=== PATIENT | male | born 1960 | race Caucasian/White ===

== ENCOUNTER → 2024-11-20 | Outpatient (CLI) | payer BC, SELFPAY ==
[2024-11-20 08:54] LABS: Alanine Aminotransferase 36 U/L (10-49); Alkaline Phosphatase 73 U/L (46-116); Anion Gap 8 (7-16); Aspartate Amino Transferase 12 U/L (0-34); BUN/Creatinine Ratio 13 Ratio (12-20); Bilirubin,Direct 0.4 mg/dL (0.0-0.3); Blood Urea Nitrogen 14 mg/dL (9-23); Calcium 9.9 mg/dL (8.3-10.6); Cardiac Risk Estimate 3.6 RATIO (4.0-6.7); Chloride 103 mMol/L (98-107); Cholesterol 135 mg/dL (132-200); Creatinine (Component) 1.1 mg/dL (0.6-1.3); Glucose 100 mg/dL (74-106); HDL Cholesterol 37 mg/dL (40-60); LDL Cholesterol,Calculated 73 mg/dL (0-130); Osmolality,Calculated 279 (275-295); Phosphorous 3.1 mg/dL (2.4-5.1); Potassium 4.5 mMol/L (3.4-5.1); Sodium 140 mMol/L (136-145); Total Protein 7.4 gm/dL (5.7-8.2); Triglycerides 126 mg/dL (30-150); Uric Acid 6.3 mg/dL (3.7-9.2); eGFR > 60 See Note
[2024-11-26 06:53] LABS: Direct LDL* 82 mg/dL (<100)
== END | disposition home or self-care (01) ==
LOC: COPL 07:23
PROVIDERS: PCP Family Medicine; Referring Provider Internal Medicine Cardiovascular Disease; Visit Provider Internal Medicine Cardiovascular Disease
DX: I25.118 Atherosclerotic heart disease of native coronary artery with other forms of angina pectoris (principal); I10 Essential (primary) hypertension; R07.89 Other chest pain; E78.2 Mixed hyperlipidemia
CPT/HCPCS: 36415; 80048; 80061; 80076; 83721; 84100; 84550

== ENCOUNTER → 2025-03-28 | Outpatient (CLI) | payer BC, SELFPAY ==
[2025-03-28 08:46] LABS: Glucose Estimated Average 97 mg/dL (80-131)
[2025-03-28 08:47] LABS: Basophils % (Auto) 1 % (0-2.5); Eosinophils # (Auto) 0.1 Thou/mm3 (0.0-0.5); Eosinophils % (Auto) 2 % (0-10); Hematocrit 45.1 % (41.0-53.0); Immature Granulocytes % (Auto) 1 % (0-0); Immature Granulocytes Auto 0.03 Thou/mm3 (0.00-0.00); Lymphocytes # (Auto) 1.7 Thou/mm3 (1.0-4.8); Lymphocytes % (Auto) 25 % (10-50); Mean Corpuscular HGB Conc 35.5 g/dl (31.0-37.0); Mean Corpuscular Hemoglobin 32.9 pg (25.0-35.0); Mean Corpuscular Volume 93 fL (80-100); Monocytes # (Auto) 0.6 Thou/mm3 (0.0-0.8); Monocytes % (Auto) 8 % (0-12); Neutrophils # (Auto) 4.2 Thou/mm3 (1.8-7.7); Neutrophils % (Auto) 64 % (37-80); Nucleated Red Blood Cell % 0 /100 WBC (0); Platelet Count 161 Thou/mm3 (140-440); Red Blood Count 4.87 Miln/mm3 (4.50-5.90); White Blood Count 6.6 Thou/mm3 (3.8-10.6)
[2025-03-28 09:12] LABS: C-Reactive Protein < 0.5 mg/dL (0.0-0.9); Thyroid Stimulating Hormone 2.19 uIU/mL (0.55-4.78)
[2025-03-28 09:13] LABS: Sed Rate (ESR) 2 mm/hr (0-20)
[2025-03-28 09:19] LABS: Collection Type, Urine Clean Catch; Squamous Epithelial Cell,Urine 0 /hpf (0-5); WBC,Urine 0 /hpf (0-5)
[2025-03-28 09:57] LABS: Bilirubin,Urine Negative (Negative); Blood,Urine Negative (Negative); Clarity,Urine Clear (Clear/Hazy); Color,Urine Lt-Yellow (Lt Yel-Yel); Culture Indicated,Urine Not Indicated; Glucose, Urine Negative (Negative); Ketones,Urine Negative (Negative); Leukocyte Esterase,Urine Negative (Negative); Nitrite,Urine Negative (Negative); PH,Urine 5.5 (5.0-7.0); Protein,Urine Negative (Neg - Trace); RBC,Urine 2 /hpf (0-3); Specific Gravity,Urine 1.021 (1.001-1.035); Urobilinogen,Urine Negative mg/dL (0.0-1.0)
[2025-04-15 17:52] LABS: PSA, Total 0.5 ng/mL (< OR = 4.0)
[2025-04-16 06:32] LABS: Sex Hormone Binding Globulin* 32 nmol/L (22-77); Testosterone, Total, Dialysis 436 ng/dL (250-1100)
== END | disposition home or self-care (01) ==
LOC: COPL 07:43
PROVIDERS: PCP Family Medicine; Referring Provider Physician Assistant; Visit Provider Physician Assistant
DX: R53.81 Other malaise (principal)
CPT/HCPCS: 36415; 81001; 83036; 84153; 84154; 84270; 84402; 84403; 84443; 85025; 85652; 86140

== ENCOUNTER → 2025-05-27 | Outpatient (CLI) | payer BC, SELFPAY ==
[2025-05-27 09:11] LABS: Basophils # (Auto) 0.0 Thou/mm3 (0.0-0.2); Basophils % (Auto) 1 % (0-2.5); Eosinophils # (Auto) 0.1 Thou/mm3 (0.0-0.5); Eosinophils % (Auto) 2 % (0-10); Hematocrit 44.7 % (41.0-53.0); Hemoglobin 16.0 g/dL (13.5-16.0); Immature Granulocytes Auto 0.02 Thou/mm3 (0.00-0.00); Lymphocytes # (Auto) 2.0 Thou/mm3 (1.0-4.8); Lymphocytes % (Auto) 30 % (10-50); Mean Corpuscular HGB Conc 35.8 g/dl (31.0-37.0); Mean Corpuscular Hemoglobin 32.6 pg (25.0-35.0); Mean Corpuscular Volume 91 fL (80-100); Monocytes # (Auto) 0.6 Thou/mm3 (0.0-0.8); Monocytes % (Auto) 9 % (0-12); Neutrophils # (Auto) 3.9 Thou/mm3 (1.8-7.7); Neutrophils % (Auto) 58 % (37-80); Nucleated Red Blood Cell # 0.00 Thou/mm3 (0.00-0.00); Nucleated Red Blood Cell % 0 /100 WBC (0); Platelet Count 154 Thou/mm3 (140-440); RDW Standard Deviation 43.6 fL (35.1-43.9); Red Blood Count 4.91 Miln/mm3 (4.50-5.90); White Blood Count 6.6 Thou/mm3 (3.8-10.6)
[2025-05-27 09:33] LABS: INR 1.0 (0.9-1.3); Partial Thromboplastin Time 27.8 Seconds (22.0-36.0); Prothrombin Time 11.3 Seconds (9.0-12.2)
[2025-05-27 09:38] LABS: Alanine Aminotransferase 23 U/L (10-49); Albumin, Serum 4.6 gm/dL (3.4-4.8); Albumin/Globulin Ratio 1.8 (1.2-2.2); Alkaline Phosphatase 74 U/L (46-116); Amylase 48 U/L (30-118); Anion Gap 8 (7-16); Aspartate Amino Transferase 24 U/L (0-34); BUN/Creatinine Ratio 13 Ratio (12-20); Bilirubin,Total 0.8 mg/dL (0.3-1.2); Blood Urea Nitrogen 16 mg/dL (9-23); Calcium 9.8 mg/dL (8.3-10.6); Calcium (Corrected) 9.8 mg/dL (8.5-10.1); Carbon Dioxide 28.4 mMol/L (20.0-31.0); Chloride 106 mMol/L (98-107); Creatinine (Component) 1.2 mg/dL (0.6-1.3); Globulin 2.6 gm/dL (2.3-3.5); Glucose 108 mg/dL (74-106); Lipase 47 U/L (12-53); Osmolality,Calculated 285 (275-295); Potassium 4.6 mMol/L (3.4-5.1); Sodium 142 mMol/L (136-145); Total Protein 7.2 gm/dL (5.7-8.2); eGFR > 60 See Note
== END | disposition home or self-care (01) ==
PROVIDERS: PCP Family Medicine; Referring Provider Internal Medicine Gastroenterology; Visit Provider Internal Medicine Gastroenterology
DX: R10.9 Unspecified abdominal pain (principal)
CPT/HCPCS: 36415; 80053; 82150; 83690; 85025; 85610; 85730